=== PATIENT | female | born 1945 | race Caucasian/White ===

== ENCOUNTER → 2020-09-10 | Outpatient (CLI) | payer MEDICARE ==
--- NOTE | 2020-09-10 11:25 | RAD ---
US THYROID History: Reason: Nontoxic Multinodular Goiter / Spl. Instructions: / History: Comparison: None. Technique: Multiple grayscale and color Doppler images of the thyroid gland were obtained. Findings: Right thyroid lobe: 6.2 x 3.6 x 2.5 cm. Heterogeneous echotexture. Left thyroid lobe: 10.2 x 2.7 x 3.7 cm. Heterogeneous echotexture. Isthmus: 0.4 cm. -Solid heterogeneous predominantly isoechoic nodule within the right mid thyroid measures 3.6 x 3.0 x 2.3 cm there are cystic changes. TI-RADS 3. -Solid heterogeneous right inferior thyroid nodule measures 2.7 x 2.7 x 1.3 cm. TI-RADS 3. -Diffuse heterogeneous appearance of the left thyroid with nodularity and cystic changes difficult to measure specific nodule. ACR Thyroid Imaging, Reporting And Data System (TI-RADS): White Paper Of The ACR TI-RADS Committee. J ournal of the [employer], volume 14, issue 5, pages 587-595 (June 2016). IMPRESSION: 1. TI-RADS 3 right thyroid nodules. Recommend comparison with prior imaging studies. If persistent c linical concern, the size of the nodules meet criteria for fine-needle aspiration. 2. Diffuse heterogeneous appearance of the left thyroid with nodularity. Recommend continued follow- up. Electronically signed by: Yoan Jauregui DO (09/10/2020 11:22 AM) [id number]
== END ==
LOC: US 08:53
PROVIDERS: ATTEND Otolaryngology
DX: E04.2 Nontoxic multinodular goiter (principal)
CPT/HCPCS: 76536

== ENCOUNTER → 2021-01-20 | Outpatient (CLI) | payer MEDICARE ==
--- NOTE | 2021-01-20 15:25 | RAD ---
Bone Densitometry History: Screening. Findings: Bone Densitometry was performed with dual photon absorption of the lumbar spine and proximal femurs. Lumbar Spine: Bone density is 1.059 g/cm2 for L1-L4. T-score is -1.0. Z-score is 1.2. Total left proximal femur: Bone density is 0.746 g/cm2. T-score is -2.1. Z-score is -0.1. IMPRESSION: Osteopenia in the left proximal femur. Normal bone mineral density in the lumbar spine. World Health Organization definition of osteoporosis and osteopenia for women: normal equal s T score at or above -1.0 standard deviations; osteopenia equals T score between -1.0 and -2.5 stand jasmin deviations; osteoporosis equals T score at or below -2.5 standard deviations. Electronically signed by: Regi Donnelly MD (01/20/2021 3:22 PM) [id number]
== END ==
LOC: DXRAD 09:54
PROVIDERS: ATTEND Physician Assistant
DX: M85.88 Other specified disorders of bone density and structure, other site (principal)
CPT/HCPCS: 77080

== ENCOUNTER → 2021-03-15 | Outpatient (CLI) | payer MEDICARE ==
--- NOTE | 2021-03-15 14:53 | RAD ---
EXAM: ULTRASOUND SOFT TISSUE NECK CLINICAL HISTORY: Reason: NON-TOXIC MULTINODULAR GOITER / Spl. Instructions: / History: COMPARISON: Thyroid ultrasound 09/10/2020 TECHNIQUE: Ultrasound examination of the thyroid gland was performed FINDINGS: Sonographic evaluation of the thyroid gland was performed and evaluated using ACR TI-RADS criteria. The right thyroid lobe measures 7.2 x 3.1 x 2.8 cm. The left thyroid lobe measures 6.0 x 2.5 x 2.9 cm . The isthmus measures 6 mm. Thyroid parenchyma is very heterogeneous and hypervascular, unchanged. T he 2 previously biopsied right thyroid nodules have not significantly changed. There are multiple add itional pseudonodules and cysts bilaterally. There are calcifications in the left thyroid lobe. Nodule #1: Location: Mid right thyroid lobe Size: 3.4 x 2.8 x 2.3 cm, no significant change. Composition: Predominantly solid Echogenicity: Isoechoic Margins: Ill-defined Shape: Wider than tall Echogenic foci: Punctate echogenic foci TI-RADS: 4 Nodule #2: Location: Inferior right thyroid lobe Size: 2.4 x 2.5 x 2.2 cm, no significant change. Composition: Solid Echogenicity: Isoechoic Margins: Ill-defined Shape: Wider than tall Echogenic foci: Punctate echogenic foci TI-RADS: 4 IMPRESSION: 1. Unchanged heterogeneous and hypervascular thyroid gland consistent with multinodular goiter. 2. The 2 previously biopsied TI RADS 4 nodules in the right thyroid lobe are unchanged. ACR TI-RADS risk category: TR4 (4-6 points): FNA if 1.5 cm, follow-up if 1-1.4 cm in 1, 2, 3, and 5 y ears. Electronically signed by: Regi Donnelly MD (03/15/2021 2:51 PM) [id number]
== END ==
LOC: US 09:52
PROVIDERS: ATTEND Otolaryngology
DX: E04.2 Nontoxic multinodular goiter (principal)
CPT/HCPCS: 76536